=== PATIENT | female | born 1935 | race Hispanic/Latino ===

== ENCOUNTER 2016-05-28 08:04 | Outpatient (CLI) | payer MEDICARE ==
--- NOTE | 2016-05-28 10:34 | Mammography Report ---
BONE DEXA:05/28/16 08:04:00 CLINICAL: Postmenopausal. No comparison. TECHNIQUE: Two site bone DEXA performed on an Hologic scanner. FINDINGS: The average BMD of the lumbar spine L1-L4 is 1.005g/cm squared with a T-score of -0.4 and a Z-score of is 2.4. The average BMD of the left hip is 0.693g/cm squared with a T-score of -2.0 and a Z-score of +0.2. IMPRESSION: 1. WHO classification: Normal with average fracture risk based on lumbar spine measurements. 2. WHO classification: Osteoporosis with high fracture risk based on left hip measurements. RECOMMENDATION: Clinical correlation and routine screening. DEFINITIONS: BMD = Bone Mineral Density T-score = BMD related to mean peak bone mass of young adult (mean expressed in Standard Deviation) Z-score = Age matched BMD expressed in SD World Health Organization (WHO) Diagnostic Criteria Normal T-score > -1 SD Osteopenia T-score between -1 and -2.4 SD Osteoporosis T-score -2.5 SD or below NOTE: BMD is not the only risk factor for fracture. One should also consider factors such as the patient's age, risk of falling, previous osteoporotic fracture, family history of osteoporotic fractures, current smoker, and low body weight. Z-scores are not calculated if >80 years of age.
== END 2016-05-28 08:05 | disposition home or self-care (01) ==
LOC: SPVWC 08:04
PROVIDERS: ATTEND Internal Medicine Hematology & Oncology
DX: M81.0 Age-related osteoporosis without current pathological fracture (principal); M85.80 Other specified disorders of bone density and structure, unspecified site; C50.412 Malignant neoplasm of upper-outer quadrant of left female breast; Z78.0 Asymptomatic menopausal state
CPT/HCPCS: 77080

== ENCOUNTER 2020-02-26 12:47 | Outpatient (CLI) | payer MEDICARE ==
--- NOTE | 2020-02-26 14:14 | Mammography Report ---
DEXA BONE DENSITY SCAN INDICATION / CLINICAL INFORMATION: OSTEOPOROSIS/MENOPAUSAL/POSTMENOPAUSAL. 84 years Female COMPARISON: 05/28/2016 LUMBAR SPINE (L1-L4): - Bone mineral density (BMD) = 1.152 g/cm2. - T-score = 1.0 - Z-score = not given. Change (%) since most recent prior (if available): +14.6 FEMORAL NECKS: - Left femoral neck Bone mineral density (BMD) = 0.585 g/cm2. - T-score = -2.4 - Z-score = not given. Change (%) since most recent prior (if available): +15.4 IMPRESSION: 1. WHO Classification: Osteopenia. Fracture Risk: Increased. BMD Reporting Guidelines (ISCD, 2015) BMD Reporting in Postmenopausal Women and in Men Age 50 and Older * T-scores are preferred. * The WHO densitometric classification is applicable. BMD Reporting in Females Prior to Menopause and in Males Younger Than Age 50 * Z-scores, not T-scores, are preferred. This is particularly important in children. * A Z-score of -2.0 or lower is defined as below the expected range for age, and a Z-score above -2. 0 is within the expected range for age. * Osteoporosis cannot be diagnosed in men under age 50 on the basis of BMD alone. * The WHO diagnostic criteria may be applied to women in the menopausal transition. http://www.iscd.org/official-positions/2480-rfrt-vchjtiri-positions-adult/ Signer Name: Tl Evans MD Signed: 02/26/2020 2:10 PM Workstation Name: [email or web address]
== END 2020-02-26 12:48 | disposition home or self-care (01) ==
LOC: SPVWC 12:47
PROVIDERS: ATTEND Internal Medicine Hematology & Oncology
DX: Z13.820 Encounter for screening for osteoporosis (principal); C50.412 Malignant neoplasm of upper-outer quadrant of left female breast; D64.9 Anemia, unspecified; M81.8 Other osteoporosis without current pathological fracture; R22.9 Localized swelling, mass and lump, unspecified
CPT/HCPCS: 77080